=== PATIENT | female | born 1985 ===

== ENCOUNTER 2023-04-21 06:37 | Day surgery (SDC) | payer BC ==
[~2023-04-21] VITALS: Ht 165.1 cm; Wt 85.1 kg
[~2023-04-21 06:37] MED LIST: Balanced Salt Epinephrine Irrigation Solution 500 mL IR SCH; Lactated Ringer's 0 ML IV ONE; Lidocaine HCl/Pf 1% 5 ML VIAL XX SCH; Moxifloxacin HCL 0.5 MG/0.1 ML 0.4MLSYR RIGHTEYE SCH; NS 500 ML IV ONE; PHENYLEPHRINE\\TROPICAMIDE\\TETRACAINE OPHTHALMIC DILATING SOLN RIGHTEYE PRN; Povidone-Iodine 450 DROP/30 ML Solution ONE; Povidone-Iodine 450 DROP/30 ML Solution RIGHTEYE SCH; Triamcinolone Inj Susp 40 MG / ML 1ML Vial INJ SCH
[2023-04-21] MEDS ORDERED: ROSUVASTATIN CA40 MG PO (06:56)
[2023-04-21] MEDS ORDERED: INSULIN GL100 UNIT/2 SC (06:56)
[2023-04-21] MEDS ORDERED: NUVARING VAGIN1 EAC1 VAG (06:56)
[2023-04-21] MEDS ORDERED: INSULIN LI100 UNIT/6 SQ (06:57)
[2023-04-21] MEDS ORDERED: Triamcinolone Inj Susp 40 MG / ML 1ML Vial ONE (07:05)
[2023-04-21] MEDS ORDERED: Lidocaine HCl/Pf 1% 5 ML VIAL ONE (07:05)
--- NOTE | 2023-04-21 07:10 | NUR ---
04/21/23 0710 Leia Lange AT [address] AT 0705
[2023-04-21] MEDS ORDERED: NS 500 ML IV ONE (07:15)
[2023-04-21] MEDS ORDERED: FentaNYL Citrate 50 MCG/ML 2 ML Injection ONE (07:54)
[2023-04-21] MEDS ORDERED: Midazolam HCl 1MG / ML 2ML Vial ONE (07:55)
[2023-04-21] MEDS ORDERED: Tetracaine HCl 0.5% Opth Soln 15 ml RIGHTEYE ONE (08:05)
[2023-04-22] MEDS ORDERED: ALBU90OI INH (09:24)
== END 2023-04-21 08:45 | disposition home or self-care (01) ==
LOC: ORSCSDS 06:37
PROVIDERS: Ophthalmology
PROC: 08RJ3JZ Replacement of Right Lens with Synthetic Substitute, Percutaneous Approach (ICD-10-PCS; principal; 2023-04-21 08:00)
DX: E10.36 Type 1 diabetes mellitus with diabetic cataract (principal); H25.13 Age-related nuclear cataract, bilateral; Z87.891 Personal history of nicotine dependence; Z79.4 Long term (current) use of insulin; Z79.899 Other long term (current) drug therapy
CPT/HCPCS: 82947; J2001; J2250; J3010; J3301; J7040; J7120; V2632

== ENCOUNTER 2023-04-28 06:17 | Day surgery (SDC) | payer BC, OTHER ==
[~2023-04-28] VITALS: Ht 165.1 cm; Wt 85.3 kg
[~2023-04-28 06:17] MED LIST changes: +ALBU90OI INH; +INSULIN GL100 UNIT/2 SC; +INSULIN LI100 UNIT/6 SQ; -Lactated Ringer's 0 ML IV ONE; +Moxifloxacin HCL 0.5 MG/0.1 ML 0.4MLSYR LEFTEYE SCH; -Moxifloxacin HCL 0.5 MG/0.1 ML 0.4MLSYR RIGHTEYE SCH; +NUVARING VAGIN1 EAC1 VAG; +PHENYLEPHRINE\\TROPICAMIDE\\TETRACAINE OPHTHALMIC DILATING SOLN LEFTEYE PRN; -PHENYLEPHRINE\\TROPICAMIDE\\TETRACAINE OPHTHALMIC DILATING SOLN RIGHTEYE PRN; +Povidone-Iodine 450 DROP/30 ML Solution LEFTEYE SCH; -Povidone-Iodine 450 DROP/30 ML Solution RIGHTEYE SCH; +ROSUVASTATIN CA40 MG PO
[2023-04-28] MEDS ORDERED: Tropicamide 1% Opth Soln 15 ML BTL ONE (06:34)
[2023-04-28] MEDS ORDERED: Lidocaine HCl/Pf 1% 5 ML VIAL ONE (06:46)
[2023-04-28] MEDS ORDERED: Triamcinolone Inj Susp 40 MG / ML 1ML Vial ONE (06:46)
[2023-04-28] MEDS ORDERED: NS 500 ML IV ONE (07:06)
--- NOTE | 2023-04-28 07:06 | NUR ---
04/28/23 0706 Leia Lange AT [address] [place] AT 0604
[2023-04-28] MEDS ORDERED: FentaNYL Citrate 50 MCG/ML 2 ML Injection ONE (07:49)
[2023-04-28] MEDS ORDERED: Midazolam HCl 1MG / ML 2ML Vial ONE (07:49)
[2023-04-28] MEDS ORDERED: Tetracaine HCl 0.5% Opth Soln 15 ml LEFTEYE ONE (07:58)
[2023-04-28] MEDS ORDERED: Phenylephrine Frt 10% Opth (ORSC) ONE (08:25)
== END 2023-04-28 08:31 | disposition home or self-care (01) ==
LOC: ORSCSDS 06:17
PROVIDERS: Ophthalmology
PROC: 08RK3JZ Replacement of Left Lens with Synthetic Substitute, Percutaneous Approach (ICD-10-PCS; principal; 2023-04-28 08:00)
DX: E11.36 Type 2 diabetes mellitus with diabetic cataract (principal); H25.12 Age-related nuclear cataract, left eye; Z96.1 Presence of intraocular lens; J45.909 Unspecified asthma, uncomplicated; E66.9 Obesity, unspecified; Z68.31 Body mass index [BMI] 31.0-31.9, adult; Z79.4 Long term (current) use of insulin; Z79.899 Other long term (current) drug therapy
CPT/HCPCS: 82947; J2001; J2250; J3010; J3301; J7040; V2632